=== PATIENT | female | born 1985 | race Hispanic/Latino ===

== ENCOUNTER 2018-03-12 19:38 | Emergency (ER) | payer MEDICAID, OTHER ==
[~2018-03-12 19:38] MED LIST: ACET1TAB12 PO; FERS325 PO; IBUP-2070 PO; PREN-66 PO
[2018-03-12 20:09] LABS: APPEARANCE,URINE SL CLOUDY (CLEAR); BILIRUBIN,URINE NEGATIVE (NEGATIVE); COLOR,URINE YELLOW (YELLOW); GLUCOSE, URINE (UA) NEGATIVE (NEGATIVE); HCG,QUAL RESULT NEGATIVE (NEGATIVE); KETONES,URINE NEGATIVE (NEGATIVE); LEUKOCYTE ESTERASE ,URINE SMALL (NEGATIVE); NITRATE,URINE NEGATIVE (NEGATIVE); OCCULT BLOOD,URINE NEGATIVE (NEGATIVE); PROTEIN,URINE NEGATIVE (NEGATIVE)
[2018-03-12] MEDS ORDERED: ONDANSETRON ODT 4 MG TAB ONE (20:18)
[2018-03-12 20:30] LABS: RBC,URINE 0-1 /HPF (0-1)
[2018-03-12 20:31] LABS: BACTERIA,URINE Few /HPF (None Seen); SQUAMOUS EPITHELIAL CELL,UR Moderate /HPF (0-2)
[2018-03-12 20:32] LABS: MUCUS,URINE Moderate LPF (None Seen)
== END 2018-03-12 20:43 | disposition home or self-care (01) ==
LOC: EDH 19:38
DX: N39.0 Urinary tract infection, site not specified (principal)
CPT/HCPCS: 81001; 81025

== ENCOUNTER 2019-03-21 22:57 | Emergency (ER) | payer OTHER ==
[2019-03-21] MEDS ORDERED: LIDOCAINE 5% TOPICAL PATCH TP ONE (23:17)
[2019-03-21] MEDS ORDERED: KETOROLAC TROMETHAMINE 60 MG/2 ML VIAL ONE (23:29)
== END 2019-03-22 00:05 | disposition home or self-care (01) ==
LOC: EDH 22:57
DX: M94.0 Chondrocostal junction syndrome [Tietze] (principal)
CPT/HCPCS: 71101; 81025; 96372; 99285; J1885

== ENCOUNTER 2019-06-27 23:26 | Emergency (ER) | payer SELFPAY | END 2019-06-28 00:47 | disposition home or self-care (01) | LOC: EDH 23:26 | DX: G89.29 Other chronic pain (principal); M25.572 Pain in left ankle and joints of left foot; Z98.890 Other specified postprocedural states | CPT/HCPCS: 99281 ==

== ENCOUNTER 2023-04-03 10:55 | Emergency (ER) | payer OTHER ==
[~2023-04-03] VITALS: Ht 144.8 cm; Wt 57.2 kg
[2023-04-03] MEDS ORDERED: SUCRALFATE 1 GM TABLET PO SCH (12:30)
[2023-04-03 12:32] LABS: BASOPHILS # (AUTO) 0.03 K/uL (0.00-0.20); BASOPHILS % (AUTO) 0.3 % (0.0-5.0); EOSINOPHILS # (AUTO) 0.04 K/uL (0.00-0.70); EOSINOPHILS % (AUTO) 0.4 % (0.0-8.0); HEMATOCRIT 41.7 % (36-48); IMMATURE GRANULOCYTE ABSOLUTE 0.02 K/uL (0-1); LYMPHOCYTES # (AUTO) 1.1 K/uL (1.0-4.8); LYMPHOCYTES % (AUTO) 11.6 % (21.0-51.0); MEAN CORPUSCULAR HEMOGLOBIN 28.7 pg (27.0-33.0); MEAN CORPUSCULAR HGB CONC 33.6 g/dL (32.0-36.0); MEAN CORPUSCULAR VOLUME 85.6 fL (79-99); MONOCYTES # (AUTO) 0.4 K/uL (0.1-1.0); MONOCYTES % (AUTO) 4.6 % (3.0-13.0); NEUTROPHILS # (AUTO) 7.8 K/uL (1.8-7.7); NEUTROPHILS % (AUTO) 82.9 % (40.0-77.0); PLATELET COUNT (AUTO) 218 K/uL (130-400); RED BLOOD CELL COUNT(AUTO) 4.87 MIL/uL (4.00-5.50); RED CELL DISTRIBUTION WIDTH 15.2 % (11.0-15.5); WHITE BLOOD COUNT (AUTO) 9.4 K/uL (4.8-10.8)
[2023-04-03 12:45] LABS: CREATININE 0.6 mg/dL (0.5-1.5)
[2023-04-03] MEDS ORDERED: PROMETHAZINE HCL 6.25 MG/5 ML PO SCH (13:00)
[2023-04-03] MEDS ORDERED: PROMETHAZINE HCL 6.25 MG/5 ML PO ONE (13:00)
[2023-04-03] MEDS ORDERED: ONDA4TAB10 PO (13:11)
[2023-04-03] MEDS ORDERED: HYDR-3421 PO (13:11)
[2023-04-03] MEDS ORDERED: SUCR1TAB2 PO (13:11)
[2023-04-03 13:31] VITALS: BP 128/79; PULSE 81; RESP 18; O2SAT 98
== END 2023-04-03 13:34 | disposition home or self-care (01) ==
LOC: EDH 10:55
DX: F41.9 Anxiety disorder, unspecified (principal); K29.70 Gastritis, unspecified, without bleeding; Z91.148 Patient's other noncompliance with medication regimen for other reason; F32.A Depression, unspecified; Z79.899 Other long term (current) drug therapy; Z98.890 Other specified postprocedural states
CPT/HCPCS: 99285; 71045; 80048; 85025; 81025; 36415; 93005; Q0169